=== PATIENT | male | born 1950 | race Caucasian/White ===

== ENCOUNTER 2017-07-05 19:22 | Emergency (ER) | payer MEDICARE, BC ==
[2017-07-05] MEDS ORDERED: Tetracaine HCl/PF 0.5% 4 ML Bottle EYERT ONE (19:47)
[2017-07-05 20:02] VITALS: BP 109/70
[2017-07-05] MEDS ORDERED: Fluorescein 1 MG Ophth Strip EYERT ONE (22:07)
--- NOTE | 2017-07-05 22:09 | EDM.PDOC ---
ED HPI GENERAL MEDICAL PROBLEM - General Chief Complaint: ENT Problem Stated Complaint: FOREIGN BODY IN EYE, [id number] Time Seen by Provider: 07/05/17 22:07 Source of Information: Reports: Patient History Limitations: Reports: No Limitations - History of Present Illness INITIAL COMMENTS - FREE TEXT/NARRATIVE: thinks got something in eye [place]. Right Eye Pain Score (Numeric/FACES): 4 - Related Data Allergies Allergy/AdvReac Type Severity Reaction Status Date / Time No Known Allergies Allergy Verified 07/05/17 19:47 Home Meds: Home Meds atorvaSTATin [Lipitor] 40 mg PO DAILY 07/05/17 [History] Past Medical History Cardiovascular History: Reports: High Cholesterol Social & Family History - Tobacco Use Smoking Status *Q: Never Smoker Second Hand Smoke Exposure: No - Caffeine Use Caffeine Use: Reports: Coffee - Recreational Drug Use Recreational Drug Use: No ED ROS GENERAL - Review of Systems Review Of Systems: ROS reveals no pertinent complaints other than HPI. ED EXAM GENERAL W FULL EYE - Physical Exam Exam: See Below Exam Limited By: No Limitations General Appearance: Alert, WD/WN, No Apparent Distress Eye Exam: Bilateral Eye: PERRL (pupils ess ER @ 4mm) Eyelids: Right: Erythema, Lid Everted for Exam Conjunctiva & Sclera: Right: Injected (no gross F/B) Cornea Exam: Bilateral: Normal Appearance Extraocular Movements: Bilateral: Intact Pupillary Size: Bilateral: 4 mm Pupillary Reaction: Bilateral: Brisk Anterior Chamber: Bilateral: Normal Appearance Ears: Hearing Grossly Normal Throat/Mouth: Normal Voice, No Airway Compromise Head: Atraumatic Neck: Non-Tender, Full Range of Motion Respiratory/Chest: No Respiratory Distress Cardiovascular: Regular Rate, Rhythm GI/Abdominal: Soft, Non-Tender Neurological: Alert, Oriented, Normal Cognition, Normal Gait, No Motor/Sensory Deficits Psychiatric: Normal Affect, Normal Mood Skin Exam: Warm, Dry, Normal Color Lymphatic: No Adenopathy Course - Vital Signs Last Recorded V/S: Last Vital Signs Temp 36.3 C 07/05/17 19:52 Pulse 62 07/05/17 19:52 Resp 16 07/05/17 19:52 BP 109/70 07/05/17 19:52 Pulse Ox 98 07/05/17 19:52 - Orders/Labs/Meds Meds: Medications Discontinued Medications Generic Name Dose Route Start Last Admin Trade Name Freq PRN Reason Stop Dose Admin Fluorescein Sodium 1 mg 07/05/17 22:07 Ful-Denia EYERT 07/05/17 22:08 ONETIME ONE Tetracaine HCl 1 ml 07/05/17 19:47 07/05/17 19:56 Tetracaine 0.5% Steri-Unit Janet EYERT 07/05/17 19:48 1 ml ONETIME ONE Administration Departure - Departure Time of Disposition: 22:38 Disposition: Home, Self-Care 01 Condition: Good Clinical Impression: Abrasion of conjunctiva, right Qualifiers: Encounter type: initial encounter Qualified Code(s): S05.01XA - Injury of conjunctiva and corneal abrasion without foreign body, right eye, initial encounter - Discharge Information Forms: ED Department Discharge Additional Instructions: 1) don't rub eye 2) see EYE CLINIC if still feel uncomfortable in the morning
== END 2017-07-05 22:38 | disposition home or self-care (01) ==
LOC: DL.ED 19:22
DX: S05.01XA Injury of conjunctiva and corneal abrasion without foreign body, right eye, initial encounter (principal); E78.00 Pure hypercholesterolemia, unspecified; Z79.899 Other long term (current) drug therapy; X58.XXXA Exposure to other specified factors, initial encounter
CPT/HCPCS: 99283; A9270

== ENCOUNTER 2018-02-13 06:02 | Day surgery (SDC) | payer MEDICARE, BC ==
[~2018-02-13 06:02] MED LIST: Sodium Chloride 0.9% 10 ML Syringe FLUSH PRN
[2018-02-13] MEDS ORDERED: Midazolam 1 MG/ML 2 ML SDV IV ONE (06:03)
[2018-02-13] MEDS ORDERED: fentaNYL 100 MCG/2 ML SDV IV ONE (06:03)
[2018-02-13] MEDS ORDERED: fentaNYL 100 MCG/2 ML SDV ONE (06:14)
[2018-02-13] MEDS ORDERED: Midazolam 1 MG/ML 2 ML SDV ONE (06:14)
[2018-02-13] MEDS: Dextrose 5%-0.45% NaCl 1,000 ML IV SCH (06:40)
[2018-02-13] MEDS: fentaNYL 100 MCG/2 ML SDV IV ONE (07:26)
[2018-02-13] MEDS: Midazolam 1 MG/ML 2 ML SDV IV ONE ×6 (07:27→07:32)
--- NOTE | 2018-02-13 08:37 | OR ---
DATE: 02/13/2018 PROCEDURES PERFORMED: Total colonoscopy, NBI, and cold snare polypectomy. INSTRUMENT USED: CF-H180AL Olympus videocolonoscope, Olympus distal detachable device. PREMEDICATIONS: Fentanyl 100 mcg intravenous and Versed 4 mg intravenous. Nasal O2 cannula. The procedure was done under pulse oximetry, BP recording, and cardiac specialist. INDICATION: The patient with previous colonic tubular adenoma. Surveillance colonoscopic examination is done for detection of any polypoid lesions and removal, endoscopic hemostasis therapy if needed. DESCRIPTION OF PROCEDURE: Initial rectal exam was unremarkable. Rigid anoscopy was normal. The colonoscope was passed with ease. Numerous scattered diverticula were noted in the distal left colon along with deformity. The scope was passed with ease up to the ileocecal area, photographs were taken of the normal-appearing cecum identified by landmarks of appendiceal orifice and double- bulged ileocecal folds. No bleeding was noted from any of the visualized areas at the commencement of the examination. No stricture. No vascular ectasia. No large isolated ulcerations seen. No evidence of diffuse inflammatory bowel disease in the form of friability, contact bleeding, or ulcerations. In the distal ascending colon, a 3 mm sized benign-appearing polyp was noted, NBI views were obtained, photographs were taken, cold snare polypectomy was done, the tissue was retrieved and sent for histopathology. Probing the proximal sides of folds and flexures, using adequate distention and clearing up the stool material, withdrawal of the scope was made. No bleeding was noted from any of the visualized areas at the completion of examination. IMPRESSION: 1. Diverticulosis. 2. Diminutive ascending colon polyp. The patient tolerated the procedure well. [facility] /[id number]
[2018-02-13 09:45] VITALS: BP 115/76
== END 2018-02-13 09:17 | disposition home or self-care (01) ==
LOC: DL.ENDO 06:02
PROVIDERS: ATTEND Internal Medicine Gastroenterology
DX: Z12.11 Encounter for screening for malignant neoplasm of colon (principal); D12.2 Benign neoplasm of ascending colon; K57.30 Diverticulosis of large intestine without perforation or abscess without bleeding; H61.20 Impacted cerumen, unspecified ear; E78.00 Pure hypercholesterolemia, unspecified; Z86.010 Personal history of colon polyps
CPT/HCPCS: 45385; J2250; J3010; J7042